=== PATIENT | female | born 1990 | race Caucasian/White ===

== ENCOUNTER → 2018-03-17 | Outpatient (CLI) | payer MEDICAID ==
--- NOTE | 2018-03-17 16:08 | RADIOLOGY IMAGING REPORT ---
FACILITY: [facility] PATIENT NAME: Joshua Bloom : 1990 MR: [id number] V: [id number] EXAM DATE: ORDERING PHYSICIAN: CORNELIA PRESCOTT TECHNOLOGIST: Location: [facility] Patient: Joshua Bloom : 1990 Visit/Account:[id number] Date of Sevice: 03/17/2018 Exam type: CHEST PA AND LAT History: Bronchitis, right lung pain Comparison: None. Findings: Both lungs are hyperinflated but otherwise clear. There is no focal infiltrate, pleural effusion or pneumothorax. Heart size is normal. The osseous structures demonstrate a mild thoracic scoliosis. IMPRESSION: 1. No acute cardiopulmonary disease. Report Dictated By: Khanh Hector MD at 03/17/2018 4:01 PM Report E-Signed By: Khanh Hector MD at 03/17/2018 4:02 PM WSN:LENCHO
== END ==
LOC: RAD 15:30
PROVIDERS: ATTEND Physician Assistant
DX: R91.8 Other nonspecific abnormal finding of lung field (principal); M41.34 Thoracogenic scoliosis, thoracic region; J20.8 Acute bronchitis due to other specified organisms
CPT/HCPCS: 71046

== ENCOUNTER 2018-04-06 11:15 | Outpatient (RCR) | payer MEDICAID ==
[2018-04-07] MEDS ORDERED: IOPAMIDOL 76% 75 ML INFUS BTL 75 ML ONE (14:55)
--- NOTE | 2018-04-07 15:22 | EKG ---
FACILITY: [facility] PATIENT NAME: JESSICA MURRIETA : [id number] MR: [id number] V: [id number] EXAM DATE: ORDERING PHYSICIAN: CORNELIA PRESCOTT TECHNOLOGIST: CODY Amador Reason : CP Blood Pressure : / mmHG Vent. Rate : 060 BPM Atrial Rate : 060 BPM P-R Int : 156 ms QRS Dur : 080 ms QT Int : 404 ms P-R-T Axes : 058 043 051 degrees QTc Int : 404 ms Marked sinus arrhythmia No acute appearing ST-T findings No previous ECGs available Confirmed by ANTONY AMOS ([id number]) on 04/07/2018 4:08:04 PM Referred By: CORNELIA PRESCOTT Confirmed By:ANTONY AMOS
--- NOTE | 2018-04-07 15:57 | RADIOLOGY IMAGING REPORT ---
FACILITY: [facility] PATIENT NAME: Joshua Bloom : 1990 MR: [id number] V: [id number] EXAM DATE: ORDERING PHYSICIAN: CORNELIA PRESCOTT TECHNOLOGIST: Location: [facility] [place] Patient: Joshua Bloom : 1990 Visit/Account:[id number] Date of Sevice: 04/07/2018 CHEST W CONTRAST COMPARISON: PA lateral chest x-ray March 17, 2018. HISTORY: Greater than one month of right-sided pleuritic chest pain. TECHNIQUE: Axial CT of the chest with intravenous contrast. Coronal and sagittal reformats. One of the following dose optimization techniques was utilized in the performance of this exam: auto mated exposure control; adjustment of the mA and/or kV according to patient size; or use of iterative reconstruction technique. Specific details can be referenced in the facility's radiology CT exam op erational policy. CONTRAST: 75 mL of IV Isovue-370. CT CHEST FINDINGS: CARDIAC: Normal size. No pericardial effusion or appreciable coronary artery calcifications. MEDIASTINUM/SMITHA: No adenopathy or mass. VASCULATURE: Four vessel left-sided aortic arch, a normal vascular variant, with the left vertebral artery arising directly from the arch. Cardiac pulsation of the aortic root. Normal caliber thoraci c aorta. There is no large central pulmonary embolism. CHEST WALL: No mass or axillary adenopathy. LUNGS/PLEURA: No significant parenchymal or pleural disease. There is no pleural effusion or bronch ial wall thickening. No significant lung nodules. BONES: No acute fractures. Multilevel Schmorl's nodes in the thoracic spine. LIMITED ABDOMEN: Unremarkable. OTHER: Negative. IMPRESSION: Unremarkable CT of the chest with no cause for pleuritic chest pain identified. Report Dictated By: Shantanu Salmeron at 04/07/2018 3:46 PM Report E-Signed By: Shantanu Salmeron at 04/07/2018 3:54 PM WSN:[email or web address]
== END 2018-04-07 18:00 | disposition home or self-care (01) ==
LOC: CT 11:15 → EDSTATUS 11:15 → CT 04-07 18:00
PROVIDERS: ATTEND Physician Assistant
DX: R07.1 Chest pain on breathing (principal)
CPT/HCPCS: 71260; 93005; Q9967

== ENCOUNTER → 2018-04-15 | Outpatient (CLI) | payer MEDICAID ==
--- NOTE | 2018-04-17 16:45 | RT HOLTER TEST ---
FACILITY: [facility] PATIENT NAME: JESSICA MURRIETA : [id number] MR: [id number] V: [id number] EXAM DATE: ORDERING PHYSICIAN: CORNELIA PRESCOTT TECHNOLOGIST: Rey Acosta-up date: 2018-04-15 13:18:00 Duration: 47:58:00 Test Indications: SINUS ARRYTHMIA Medications: NONE LISTED 407201 QRS complexes 54 Ventricular ectopics which represent <1 % of total QRS comp. 8206 Supraventricular ectopics which represent 3 % of total QRS comp. * Paced QRS complexes which represent % of total QRS comp. VENTRICULAR ECTOPY 39 Isolated 0 Bigeminal Cycles 5 Couplets 1 Runs 5 Beats in Runs 5 Beats LONGEST at 189 BPM at 17:22:28 2018-04-16 5 Beats FASTEST at 189 BPM at 17:22:28 2018-04-16 SUPRAVENTRICULAR ECTOPY 47 Isolated 11 Couplets 17 Runs 8137 Beats in Runs 3506 Beats LONGEST at 140 BPM at 20:27:57 2018-04-16 425 Beats FASTEST at 181 BPM at 20:08:15 2018-04-16 HEART RATES 41 MIN at 04:13:38 2018-04-16 79 AVG 187 MAX at 20:09:28 2018-04-16 LONGEST RR 1.568 secs at 03:15:18 2018-04-16 S-T LEVELS Channel 1 -12.800 mm MIN at 13:18:00 2018-04-15 -12.800 mm MAX at 13:18:00 2018-04-15 Channel 2 -12.800 mm MIN at 13:18:00 2018-04-15 -12.800 mm MAX at 13:18:00 2018-04-15 Several sustained runs of SVT which correlate with patient symptoms of palpitations and lightheadedne ss. One run of 5 beats v-tach which correlate with symptoms noted by pt. Occasional PVC in bigeminy. Occasional SVE in isolation or bigeminal pattern. Abnormal halter recording. Confirmed by Dennys Linton ([id number]) on 04/17/2018 4:45:01 PM Referred By: Overread By: Dennys Cole
== END ==
LOC: RESP 02:17
PROVIDERS: ATTEND Physician Assistant
DX: I47.1 Supraventricular tachycardia (principal); R94.39 Abnormal result of other cardiovascular function study
CPT/HCPCS: 93225; 93226

== ENCOUNTER → 2018-04-29 | Outpatient (CLI) | payer MEDICAID | LOC: US 00:32 | PROVIDERS: ATTEND Internal Medicine | DX: I47.1 Supraventricular tachycardia (principal); R00.2 Palpitations | CPT/HCPCS: 36415; 82040; 82247; 82310; 82374; 82435; 82565; 82947; 84075; 84132; 84155; 84295; 84443; 84450; 84460; 84520; 85027; 93306 ==

== ENCOUNTER → 2018-06-23 | Outpatient (CLI) | payer MEDICAID | LOC: LAB 12:01 | PROVIDERS: ATTEND Internal Medicine Clinical Cardiac Electrophysiology | DX: I47.1 Supraventricular tachycardia (principal) | CPT/HCPCS: 36415; 82310; 82374; 82435; 82565; 82947; 84132; 84295; 84520; 85027 ==

== ENCOUNTER 2018-08-21 22:09 | Emergency (ER) | payer MEDICAID ==
--- NOTE | 2018-08-21 22:14 | ER Report ---
History and Physical Time Seen By MD: 22:13 HPI/ROS CHIEF COMPLAINT: Depression HISTORY OF PRESENT ILLNESS: 28-year-old female brought in by her [id number] with overwhelming depression. Patient's been spending approximately 20 hours in bed per day. She is unable to function because of multiple stressors. She recently had a cardiac ablation in June of this year for SVT. Patient recently had cervical cancer and underwent a LEEP procedure. Patient has a 7-year-old child, the father of the child has since left the relationship and is now seeing another woman and has a child in that relationship. Patient denies actual suicidal ideation or plan. She smokes 1-1/2 packs per day of cigarettes. She admits to some cannabis use. REVIEW OF SYSTEMS: Respiratory: No cough, no dyspnea. Cardiovascular: No chest pain, no palpitations. Gastrointestinal: No vomiting, no abdominal pain. Musculoskeletal: No back pain. Allergies: Coded Allergies: No Known Drug Allergies (Unverified , 08/22/18) Home Meds Reported Medications Nicotine (NICOTROL) 10 Mg/Inh Ctr, 10 MG INH 1-2 hours 08/22/18 Reviewed Nurses Notes: Yes Old Medical Records Reviewed: Yes Constitutional Vital Sign - Last 24 Hours 08/21/18 08/21/18 08/21/18 08/21/18 22:14 22:20 22:24 22:30 Temp 98.2 Pulse 118 115 Resp 16 B/P (MAP) 136/95 136/95 (109) 133/96 (108) Pulse Ox 98 98 O2 Delivery Room Air 08/21/18 08/21/18 08/21/18 22:39 22:54 23:00 Pulse 103 107 B/P (MAP) 130/91 (104) Pulse Ox 98 84 Physical Exam General Appearance: The patient is alert, has no immediate need for airway protection and no current signs of toxicity. Vital signs stable, afebrile, pulse ox normal, no acute distress, appears withdrawn and depressed HEENT: Pupils equal and round no injection. TMs normal, oropharynx without redness or exudate, mucous. Membranes are moist Respiratory: Chest is non tender, lungs are clear to auscultation. Cardiac: regular rate and rhythm Gastrointestinal: Abdomen is soft and non tender, no masses, bowel sounds normal. Musculoskeletal: Neck: Neck is supple and non tender. No thyromegaly noted Extremities have full range of motion and are non tender. Skin: No rashes or lesions. DIFFERENTIAL DIAGNOSIS: After history and physical exam differential diagnosis was considered for depression including functional and major depression, situational depression, medication side effect, drugs and alcohol abuse. Medical Decision Making Data Points Result Diagram: 08/21/18224508/21/182245 Laboratory Hematology Test 08/21/18 22:13 08/21/18 22:46 Urine Color Yellow Urine Clarity Slightly-cloudy Urine pH 6.0 pH (4.8-9.5) Urine Specific Blackwell 1.026 Urine Protein 30 mg/dL (NEGATIVE) Urine Glucose (UA) Negative mg/dL (NEGATIVE) Urine Ketones Trace mg/dL (NEGATIVE) Urine Blood Negative (NEGATIVE) Urine Nitrite Negative (NEGATIVE) Urine Bilirubin Negative (NEGATIVE) Urine Urobilinogen 4.0 mg/dL (0.2-1.9) Urine Leukocyte Esterase Negative (NEGATIVE) Urine RBC 1 /HPF (0-2/HPF) Urine WBC 1 /HPF (0-5/HPF) Urine Squamous Epithelial Cells Many /LPF (</=FEW) Urine Bacteria Negative /HPF (NONE-FEW) Urine Hyaline Casts Few /LPF (NONE-FEW) Urine Mucus Few /HPF (NONE-FEW) Urine HCG, Qualitative Negative (NEGATIVE) Urine Opiates Screen Negative Urine Barbiturates Screen Negative Ur Tricyclic Antidepressants Screen Negative Urine Phencyclidine Screen Negative Urine Amphetamines Screen Positive Urine Benzodiazepines Screen Negative Urine Cocaine Screen Negative Urine Cannabinoids Screen Positive Red Blood Count 4.59 M/uL (4.17-5.56) Mean Corpuscular Volume 94.1 fL (80.0-96.0) Mean Corpuscular Hemoglobin 31.8 pg (26.0-33.0) Mean Corpuscular Hemoglobin Concent 33.8 g/dL (32.0-36.0) Red Cell Distribution Width 12.2 % (11.5-14.5) Mean Platelet Volume 7.7 fL (7.2-11.1) Neutrophils (%) (Auto) 61.7 % (39.4-72.5) Lymphocytes (%) (Auto) 29.7 % (17.6-49.6) Monocytes (%) (Auto) 6.4 % (4.1-12.4) Eosinophils (%) (Auto) 1.5 % (0.4-6.7) Basophils (%) (Auto) 0.7 % (0.3-1.4) Nucleated RBC Relative Count (auto) 0.1 /100WBC Neutrophils # (Auto) 3.6 K/uL (2.0-7.4) Lymphocytes # (Auto) 1.7 K/uL (1.3-3.6) Monocytes # (Auto) 0.4 K/uL (0.3-1.0) Eosinophils # (Auto) 0.1 K/uL (0.0-0.5) Basophils # (Auto) 0.0 K/uL (0.0-0.1) Nucleated RBC Absolute Count (auto) 0.00 K/uL Sodium Level 139 mmol/L (137-145) Potassium Level 3.4 mmol/L (3.5-5.0) Chloride Level 103 mmol/L (98-107) Carbon Dioxide Level 24 mmol/L (22-31) Blood Urea Nitrogen 8 mg/dl (7-18) Creatinine 0.70 mg/dl (0.52-1.04) Glomerular Filtration Rate Calc > 60.0 Random Glucose 98 mg/dl (75-110) Calcium Level 9.2 mg/dl (8.4-10.2) Magnesium Level 1.8 mg/dl (1.7-2.2) Total Bilirubin 0.3 mg/dl (0.2-1.3) Aspartate Amino Transf (AST/SGOT) 20 U/L (0-35) Alanine Aminotransferase (ALT/SGPT) 27 U/L (0-56) Alkaline Phosphatase 55 U/L (0-126) Total Protein 7.6 g/dl (6.3-8.2) Albumin 4.6 g/dl (3.5-5.0) Salicylates Level < 10 mg/L Salicylate Last Dose Date unk Acetaminophen Level < 10 ug/ml Serum Alcohol < 10 mg/dl Chemistry Test 08/21/18 22:13 08/21/18 22:46 Urine Color Yellow Urine Clarity Slightly-cloudy Urine pH 6.0 pH (4.8-9.5) Urine Specific Blackwell 1.026 Urine Protein 30 mg/dL (NEGATIVE) Urine Glucose (UA) Negative mg/dL (NEGATIVE) Urine Ketones Trace mg/dL (NEGATIVE) Urine Blood Negative (NEGATIVE) Urine Nitrite Negative (NEGATIVE) Urine Bilirubin Negative (NEGATIVE) Urine Urobilinogen 4.0 mg/dL (0.2-1.9) Urine Leukocyte Esterase Negative (NEGATIVE) Urine RBC 1 /HPF (0-2/HPF) Urine WBC 1 /HPF (0-5/HPF) Urine Squamous Epithelial Cells Many /LPF (</=FEW) Urine Bacteria Negative /HPF (NONE-FEW) Urine Hyaline Casts Few /LPF (NONE-FEW) Urine Mucus Few /HPF (NONE-FEW) Urine HCG, Qualitative Negative (NEGATIVE) Urine Opiates Screen Negative Urine Barbiturates Screen Negative Ur Tricyclic Antidepressants Screen Negative Urine Phencyclidine Screen Negative Urine Amphetamines Screen Positive Urine Benzodiazepines Screen Negative Urine Cocaine Screen Negative Urine Cannabinoids Screen Positive White Blood Count 5.8 k/uL (4.5-11.0) Red Blood Count 4.59 M/uL (4.17-5.56) Hemoglobin 14.6 g/dL (12.0-16.0) Hematocrit 43.1 % (34.0-47.0) Mean Corpuscular Volume 94.1 fL (80.0-96.0) Mean Corpuscular Hemoglobin 31.8 pg (26.0-33.0) Mean Corpuscular Hemoglobin Concent 33.8 g/dL (32.0-36.0) Red Cell Distribution Width 12.2 % (11.5-14.5) Platelet Count 251 K/uL (150-450) Mean Platelet Volume 7.7 fL (7.2-11.1) Neutrophils (%) (Auto) 61.7 % (39.4-72.5) Lymphocytes (%) (Auto) 29.7 % (17.6-49.6) Monocytes (%) (Auto) 6.4 % (4.1-12.4) Eosinophils (%) (Auto) 1.5 % (0.4-6.7) Basophils (%) (Auto) 0.7 % (0.3-1.4) Nucleated RBC Relative Count (auto) 0.1 /100WBC Neutrophils # (Auto) 3.6 K/uL (2.0-7.4) Lymphocytes # (Auto) 1.7 K/uL (1.3-3.6) Monocytes # (Auto) 0.4 K/uL (0.3-1.0) Eosinophils # (Auto) 0.1 K/uL (0.0-0.5) Basophils # (Auto) 0.0 K/uL (0.0-0.1) Nucleated RBC Absolute Count (auto) 0.00 K/uL Glomerular Filtration Rate Calc > 60.0 Calcium Level 9.2 mg/dl (8.4-10.2) Magnesium Level 1.8 mg/dl (1.7-2.2) Total Bilirubin 0.3 mg/dl (0.2-1.3) Aspartate Amino Transf (AST/SGOT) 20 U/L (0-35) Alanine Aminotransferase (ALT/SGPT) 27 U/L (0-56) Alkaline Phosphatase 55 U/L (0-126) Total Protein 7.6 g/dl (6.3-8.2) Albumin 4.6 g/dl (3.5-5.0) Salicylates Level < 10 mg/L Salicylate Last Dose Date unk Acetaminophen Level < 10 ug/ml Serum Alcohol < 10 mg/dl Toxicology Test 08/21/18 22:13 08/21/18 22:46 Urine Opiates Screen Negative Urine Barbiturates Screen Negative Ur Tricyclic Antidepressants Screen Negative Urine Phencyclidine Screen Negative Urine Amphetamines Screen Positive Urine Benzodiazepines Screen Negative Urine Cocaine Screen Negative Urine Cannabinoids Screen Positive Salicylates Level < 10 mg/L Salicylate Last Dose Date unk Acetaminophen Level < 10 ug/ml Serum Alcohol < 10 mg/dl Urinalysis Test 08/21/18 22:13 Urine Color Yellow Urine Clarity Slightly-cloudy Urine pH 6.0 pH (4.8-9.5) Urine Specific Blackwell 1.026 Urine Protein 30 mg/dL (NEGATIVE) Urine Glucose (UA) Negative mg/dL (NEGATIVE) Urine Ketones Trace mg/dL (NEGATIVE) Urine Blood Negative (NEGATIVE) Urine Nitrite Negative (NEGATIVE) Urine Bilirubin Negative (NEGATIVE) Urine Urobilinogen 4.0 mg/dL (0.2-1.9) Urine Leukocyte Esterase Negative (NEGATIVE) Urine RBC 1 /HPF (0-2/HPF) Urine WBC 1 /HPF (0-5/HPF) Urine Squamous Epithelial Cells Many /LPF (</=FEW) Urine Bacteria Negative /HPF (NONE-FEW) Urine Hyaline Casts Few /LPF (NONE-FEW) Urine Mucus Few /HPF (NONE-FEW) Urine HCG, Qualitative Negative (NEGATIVE) ED Course/Re-evaluation ED Course Patient was admitted to an examination room. H&P was done. The differential diagnoses was considered. Patient was evaluated. Her tox screen was positive for amphetamines and cannabis. Patient with severe depression, spitting 20 hours a day in bed. She is unable to cope with her stressors. She has multiple stressors as noted in the initial history. Star was discussed with nurse practitioner Kim Parker on-call for the [facility] Department accepted the patient for involuntary admission. Decision to Disposition Date: Aug 21, 2018 Decision to Disposition Time: 23:11 Depart Departure Latest Vital Signs Vital Signs Date Time Temp Pulse Resp B/P (MAP) Pulse Ox O2 Delivery O2 Flow Rate FiO2 08/21/18 23:00 130/91 (104) 08/21/18 22:54 107 84 08/21/18 22:14 98.2 16 Room Air Impression: Primary Impression: Depression Condition: Improved Disposition: XFER TO [facility] Problem Qualifiers Primary Impression: Depression Depression Type: major depressive disorder Major depression recurrence: unspecified whether recurrent Active/Remission status: currently active Major depression episode severity: moderate Qualified Codes: F32.1 - Major depressive disorder, single episode, moderate OZ RAMIREZ DO Aug 21, 2018 22:14
[2018-08-21 22:57] LABS: PLATELET COUNT, AUTOMATED 251 K/uL (150-450)
[2018-08-21 23:00] VITALS: BP 130/91
[2018-08-22] MEDS ORDERED: NIC10R INH ×2 (11:21→15:01)
== END 2018-08-21 23:39 ==
LOC: ER 22:26
DX: F32.1 Major depressive disorder, single episode, moderate (principal); F15.10 Other stimulant abuse, uncomplicated; F12.10 Cannabis abuse, uncomplicated
CPT/HCPCS: 36415; 80305; 81001; 81025; 83735; 84443; 85025; 99284; G0480; 80320; 80329; 82040; 82247; 82310; 82374; 82435; 82565; 82947; 84075; 84132; 84155; 84295; 84450; 84460; 84520

== ENCOUNTER 2018-08-21 23:28 | Inpatient (IN) | payer MEDICAID ==
[~2018-08-21] VITALS: Ht 177.8 cm; Wt 66.2 kg
[2018-08-22] MEDS ORDERED: NICOTINE CARTRIDGE 1 EA PO PRN (00:15)
[2018-08-22] MEDS ORDERED: NICOTINE INH SYSTEM 10 MG/INH INH PRN (00:15)
[2018-08-22 00:51] VITALS: BP 142/112
[2018-08-22] MEDS ORDERED: NIC10R INH ×2 (11:21→15:01)
[2018-08-22 12:50] VITALS: BP 120/66
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
== END 2018-08-22 15:15 | disposition home or self-care (01) | DRG 882 ==
LOC: BHS 23:28
PROVIDERS: ADMIT Nurse Practitioner Psychiatric/Mental Health; ATTEND Nurse Practitioner Psychiatric/Mental Health
DX: F43.23 Adjustment disorder with mixed anxiety and depressed mood (principal); F12.20 Cannabis dependence, uncomplicated; F17.210 Nicotine dependence, cigarettes, uncomplicated; Z62.810 Personal history of physical and sexual abuse in childhood; Z63.5 Disruption of family by separation and divorce; Z85.41 Personal history of malignant neoplasm of cervix uteri; Z56.0 Unemployment, unspecified; Z91.5 Personal history of self-harm
CPT/HCPCS: 36415; 80305; 80320; 80329; 81001; 81025; 82040; 82247; 82310; 82374; 82435; 82565; 82947; 83735; 84075; 84132; 84155; 84295; 84443; 84450; 84460; 84520; 85025; 99284

== ENCOUNTER 2018-10-17 14:58 | Emergency (ER) | payer MEDICAID ==
[~2018-10-17 14:58] MED LIST: NIC10R INH
--- NOTE | 2018-10-17 15:12 | ER Report ---
History and Physical Time Seen By MD: 15:11 Hx. of Stated Complaint: NAUSEA VOMITTING DIARRHEA SINCE LAST NI9GHT. VERY DIZZY HPI/ROS CHIEF COMPLAINT: Lightheadedness and dizziness HISTORY OF PRESENT ILLNESS: This is a 28-year-old female who presents to emergency department for lightheadedness and dizziness. Patient states that over the last couple days she's had some nausea 12 episodes of vomiting, diarrhea. States that last night she became dizzy after bending over and standing up, he has had continued dizziness today. Nothing seems to to help. She does have a history of SVT, she did have an ablation in June which has been relatively successful. She denies palpitations, no chest pain or shortness of breath. No rashes. She states she's had mild upper respiratory symptoms for the last couple days as well. Her and son who is at the bedside also had GI symptoms this week. REVIEW OF SYSTEMS: Constitutional: No fever, no chills. Eyes: No discharge. ENT: No sore throat. Cardiovascular: No chest pain, no palpitations. Respiratory: No cough, no shortness of breath. Gastrointestinal: As above. Genitourinary: No hematuria. Musculoskeletal: No back pain. Skin: No rashes. Neurological: As above. Allergies: Coded Allergies: No Known Drug Allergies (Unverified , 10/17/18) Home Meds Active Scripts Ondansetron Hcl (ZOFRAN) 4 Mg Tablet, 4 MG PO Q4-6H PRN for prn, #20 TAB Prov:HUEY CABRERA FOLDER AND NOTCHER-BC 10/17/18 Discontinued Reported Medications Nicotine (NICOTROL) 10 Mg/Inh Ctr, 10 MG INH 1-2 hours 08/22/18 Past Medical/Surgical History Patient has a past medical cervical history of recurrent SVT, ablation in June 2018, endometriosis, LEEP procedure, wears glasses, depression, [place] teeth extraction. Reviewed Nurses Notes: Yes Smoking Status: Former Smoker, Heavy Tobacco Smoker Exposure to Second Hand Smoke?: Yes Hx Substance Use Disorder: Yes Hx Alcohol Use: No Constitutional Vital Sign - Last 24 Hours 10/17/18 10/17/18 10/17/18 10/17/18 15:03 15:04 15:30 15:35 Temp 98.8 Pulse 72 69 67 Resp 20 18 B/P (MAP) 140/98 140/98 (112) 128/93 (105) Pulse Ox 97 100 99 O2 Delivery Room Air 10/17/18 10/17/18 10/17/18 10/17/18 16:00 16:05 16:30 16:35 Pulse 68 Resp 21 21 B/P (MAP) 121/86 (98) 127/96 (106) Pulse Ox 93 99 10/17/18 10/17/18 17:00 17:05 Pulse 66 Resp 19 B/P (MAP) 129/92 (104) Physical Exam General Appearance: The patient is alert, has no immediate need for airway protection and no signs of toxicity. Eyes: Pupils equal and round no pallor or injection. EOMs intact. No nystagmus. ENT, Mouth: Mucous membranes are moist. Respiratory: There are no retractions, lungs are clear to auscultation. Cardiovascular: Regular rate and rhythm. No murmurs, clicks or rubs. Gastrointestinal: Abdomen is soft and non tender, no masses, bowel sounds normal. Neurological: Alert and oriented 4. Moving all extremities. Following all commands. No focal neuro deficits. Skin: Warm and dry, no rashes. Musculoskeletal: Neck is supple non tender. Extremities are nontender, nonswollen and have full range of motion. DIFFERENTIAL DIAGNOSIS: After history and physical exam differential diagnosis was considered for dizziness including but not limited to peripheral and central causes of vertigo, orthostatic causes including dehydration, and blood loss. Medical Decision Making Data Points Result Diagram: 10/17/18 1513 10/17/18 1513 Laboratory Hematology Test 10/17/18 15:13 Red Blood Count 4.57 M/uL (4.17-5.56) Mean Corpuscular Volume 95.1 fL (80.0-96.0) Mean Corpuscular Hemoglobin 32.5 pg (26.0-33.0) Mean Corpuscular Hemoglobin Concent 34.2 g/dL (32.0-36.0) Red Cell Distribution Width 12.5 % (11.5-14.5) Mean Platelet Volume 7.3 fL (7.2-11.1) Neutrophils (%) (Auto) 66.3 % (39.4-72.5) Lymphocytes (%) (Auto) 23.3 % (17.6-49.6) Monocytes (%) (Auto) 5.3 % (4.1-12.4) Eosinophils (%) (Auto) 4.7 % (0.4-6.7) Basophils (%) (Auto) 0.4 % (0.3-1.4) Nucleated RBC Relative Count (auto) 0.0 /100WBC Neutrophils # (Auto) 4.4 K/uL (2.0-7.4) Lymphocytes # (Auto) 1.5 K/uL (1.3-3.6) Monocytes # (Auto) 0.4 K/uL (0.3-1.0) Eosinophils # (Auto) 0.3 K/uL (0.0-0.5) Basophils # (Auto) 0.0 K/uL (0.0-0.1) Nucleated RBC Absolute Count (auto) 0.00 K/uL Sodium Level 138 mmol/L (137-145) Potassium Level 3.0 mmol/L (3.5-5.0) Chloride Level 107 mmol/L (98-107) Carbon Dioxide Level 23 mmol/L (22-31) Blood Urea Nitrogen 9 mg/dl (7-18) Creatinine 0.50 mg/dl (0.52-1.04) Glomerular Filtration Rate Calc > 60.0 Random Glucose 97 mg/dl (75-110) Calcium Level 8.6 mg/dl (8.4-10.2) Total Bilirubin 0.4 mg/dl (0.2-1.3) Aspartate Amino Transf (AST/SGOT) 16 U/L (0-35) Alanine Aminotransferase (ALT/SGPT) 20 U/L (0-56) Alkaline Phosphatase 51 U/L (0-126) Total Protein 6.7 g/dl (6.3-8.2) Albumin 3.7 g/dl (3.5-5.0) Chemistry Test 10/17/18 15:13 White Blood Count 6.6 k/uL (4.5-11.0) Red Blood Count 4.57 M/uL (4.17-5.56) Hemoglobin 14.8 g/dL (12.0-16.0) Hematocrit 43.4 % (34.0-47.0) Mean Corpuscular Volume 95.1 fL (80.0-96.0) Mean Corpuscular Hemoglobin 32.5 pg (26.0-33.0) Mean Corpuscular Hemoglobin Concent 34.2 g/dL (32.0-36.0) Red Cell Distribution Width 12.5 % (11.5-14.5) Platelet Count 229 K/uL (150-450) Mean Platelet Volume 7.3 fL (7.2-11.1) Neutrophils (%) (Auto) 66.3 % (39.4-72.5) Lymphocytes (%) (Auto) 23.3 % (17.6-49.6) Monocytes (%) (Auto) 5.3 % (4.1-12.4) Eosinophils (%) (Auto) 4.7 % (0.4-6.7) Basophils (%) (Auto) 0.4 % (0.3-1.4) Nucleated RBC Relative Count (auto) 0.0 /100WBC Neutrophils # (Auto) 4.4 K/uL (2.0-7.4) Lymphocytes # (Auto) 1.5 K/uL (1.3-3.6) Monocytes # (Auto) 0.4 K/uL (0.3-1.0) Eosinophils # (Auto) 0.3 K/uL (0.0-0.5) Basophils # (Auto) 0.0 K/uL (0.0-0.1) Nucleated RBC Absolute Count (auto) 0.00 K/uL Glomerular Filtration Rate Calc > 60.0 Calcium Level 8.6 mg/dl (8.4-10.2) Total Bilirubin 0.4 mg/dl (0.2-1.3) Aspartate Amino Transf (AST/SGOT) 16 U/L (0-35) Alanine Aminotransferase (ALT/SGPT) 20 U/L (0-56) Alkaline Phosphatase 51 U/L (0-126) Total Protein 6.7 g/dl (6.3-8.2) Albumin 3.7 g/dl (3.5-5.0) EKG/Imaging EKG Interpretation 12 lead EKG: Time of EKG 1523. Rhythm: Junctional rhythm, ventricular rate 69 bpm. [place]: normal QRS: normal ST segments: No ST depression or elevation identified. No P-wave when compared to the 04/07/2019 EKG, patient did have an ablation in June for recurrent SVT. Otherwise unremarkable. ED Course/Re-evaluation Clinical Indication for ER IV: Hydration, IV Access ED Course The patient was admitted to room. A history and physical obtained. Differential diagnoses were considered. IV was started. A CBC, CMP, UA were obtained. Laboratory studies unremarkable. A 1 L normal saline bolus and given 2. 4 mg IV Zofran. EKG showing junctional rhythm otherwise unremarkable. 25 mg by mouth meclizine. Patient did have significant improvement of her symptoms. I did tell the patient this is likely due to the diarrhea, recommend continuing to drink plenty of fluids, was given Zofran and encouraged to take meclizine as needed for the dizziness. Follow-up with her primary care provider this next week for reevaluation, return to ER for any other concerns she expressed understanding and discharged home. Decision to Disposition Date: October 17, 2018 Decision to Disposition Time: 17:36 Depart Departure Latest Vital Signs Vital Signs Date Time Temp Pulse Resp B/P (MAP) Pulse Ox O2 Delivery O2 Flow Rate FiO2 10/17/18 17:05 66 19 10/17/18 17:00 129/92 (104) 10/17/18 16:35 99 10/17/18 15:03 98.8 Room Air Impression: Primary Impression: Vertigo Condition: Improved Disposition: HOME OR SELF-CARE Referrals: CORNELIA PRESCOTT (PCP) 1 Week New Scripts Ondansetron Hcl (ZOFRAN) 4 Mg Tablet 4 MG PO Q4-6H PRN for prn, #20 TAB Prov: HUEY CABRERA FOLDER AND NOTCHER-BC 10/17/18 Patient Instructions: Vertigo (ED) Additional Instructions: Be sure to drink plenty of fluids. Get plenty of rest. Take the Zofran as needed. You can take 25 mg of meclizine a day. Follow-up with your primary care provider within one week for reevaluation. Return to the ER for any concerns or worsening symptoms. When you move from a laying, sitting to standing position be sure to do this sl owly and allow anybody time to adjust. HUEY CABRERA FOLDER AND NOTCHER-BC October 17, 2018 15:12
[2018-10-17] MEDS ORDERED: NS(*) 0.9% 1000 ML BAG 1,000 ML IV ONE ×2 (15:14→15:23)
[2018-10-17] MEDS ORDERED: ONDANSETRON 4 MG/2 ML VIAL IVP ONE (15:25)
[2018-10-17 15:31] LABS: PLATELET COUNT, AUTOMATED 229 K/uL (150-450)
--- NOTE | 2018-10-17 15:33 | EKG ---
FACILITY: PATIENT NAME: JESSICA MURRIETA : [id number] MR: [id number] V: [id number] EXAM DATE: ORDERING PHYSICIAN: HUEY CABRERA TECHNOLOGIST: TRE Test Reason : dizzy Blood Pressure : / mmHG Vent. Rate : 069 BPM Atrial Rate : 070 BPM P-R Int : 000 ms QRS Dur : 088 ms QT Int : 426 ms P-R-T Axes : 000 037 047 degrees QTc Int : 456 ms Accelerated Junctional rhythm Anterior infarct , age undetermined Abnormal ECG When compared with ECG of 07-APR-2018 15:12, Junctional rhythm has replaced sinus arrythmia Confirmed by Dennys Linton ([id number]) on 10/17/2018 9:48:41 PM Referred By: Confirmed By:Dennys Cole
[2018-10-17] MEDS ORDERED: MECLIZINE HCL 25 MG TAB PO ONE (16:10)
[2018-10-17 17:00] VITALS: BP 129/92
[2018-10-17] MEDS ORDERED: ONDA4TAB97 PO (17:36)
== END 2018-10-17 17:48 | disposition home or self-care (01) ==
LOC: ER 15:01
DX: R42 Dizziness and giddiness (principal)
CPT/HCPCS: 85025; 93005; 96361; 96374; 99284; J2405; J7030; J8597; 82040; 82247; 82310; 82374; 82435; 82565; 82947; 84075; 84132; 84155; 84295; 84450; 84460; 84520; 99283

== ENCOUNTER 2018-11-06 00:40 | Day surgery (SDC) | payer MEDICAID ==
[~2018-11-06] VITALS: Ht 180.3 cm; Wt 63.0 kg
[~2018-11-06 00:40] MED LIST changes: +ONDA4TAB97 PO; +PARO-243 PO
[2018-11-06] MEDS ORDERED: LIDOCAINE/SOD BICARB 8.4% SYR ID ONE (13:05)
[2018-11-06] MEDS ORDERED: MIDAZOLAM 2 MG/2 ML VIAL IVP PRN (13:05)
[2018-11-06] MEDS ORDERED: FAMOTIDINE 20 MG TAB PO ONE (13:05)
[2018-11-06] MEDS ORDERED: NORMOSOL R SOLN(*) 1000 ML BAG 1,000 ML IV PRN (13:05)
[2018-11-06 13:22] VITALS: BP 126/83
[2018-11-06] MEDS ORDERED: PROPOFOL EMUL(*) 10MG/ML 20 ML 20 ML ONE (14:10)
[2018-11-06] MEDS ORDERED: DEXAMETHASONE SOD 4 MG/ML VIAL ONE (14:10)
[2018-11-06] MEDS ORDERED: SUGAMMADEX SOD 200 MG/2 ML SDV ONE (14:10)
[2018-11-06] MEDS ORDERED: LIDOCAINE MPF 1% 5 ML VIAL ONE (14:10)
[2018-11-06] MEDS ORDERED: ONDANSETRON 4 MG/2 ML VIAL ONE (14:10)
[2018-11-06] MEDS ORDERED: ROCURONIUM BROM 10 MG/ML 10 ML ONE (14:10)
[2018-11-06] MEDS ORDERED: fentaNYL CITR 250 MCG/5 ML AMP ONE (14:11)
[2018-11-06] MEDS ORDERED: KETAMINE HCL 200 MG/20 ML MDV ONE (14:13)
[2018-11-06] MEDS ORDERED: ROPIVACAINE 0.2% 20 ML VIAL ONE (15:32)
[2018-11-06] MEDS ORDERED: LR(*) 1000 ML BAG 1,000 ML IV ONE (17:11)
--- NOTE | 2018-11-06 17:11 | Post Operative Note ---
Operative Note - OFFICE DIRECTOR Operative Day Date: Nov 06, 2018 Time: 17:10 Physicians Surgeon: Brandon Anesthesia: GETA Diagnosis Pre-Op Diagnosis: pelvic pain dysmenorrhea dyspareunia Post-Op Diagnosis: same Procedure Findings: PID adhesions Procedure(s): L-scope diagnostic L-scope adhesiolysis Complications: [id number] Fluids Fluids: 1350 ml Estimated Blood Loss: minimal Dictated Date OP Note Dictated: Nov 06, 2018 Time OP Note Dictated: 17:11 Copies to: ENMA GERMIAN MD ; ENMA GERMAIN MD Nov 06, 2018 17:11
[2018-11-06] MEDS ORDERED: APAP/HYDROCODONE 325/5 TAB PO PRN (17:15)
[2018-11-06] MEDS ORDERED: IBUP800T37 PO (17:16)
[2018-11-06] MEDS ORDERED: DOXY-252 PO (17:16)
[2018-11-06] MEDS ORDERED: fentaNYL CITR 100 MCG/2 ML AMP ONE ×2 (17:16→17:39)
[2018-11-06] MEDS ORDERED: LOR5/325 PO (17:16)
--- NOTE | 2018-11-06 17:19 | Short(Outpt) Discharge Summary ---
Discharge Summary Reason for Hosp/Final Diag: (1) Dyspareunia, female (2) PID (acute pelvic inflammatory disease) Hospital Course & Plan: Findings consistent with PID and adhesions. Would recommend hyst as fertility is not possible in this condition and if pain persists, this would be only way to resolve. (3) Pelvic pain Hospital Course & Plan: no endometriosis present (4) Dysmenorrhea Departure Discharge to: Home, Self Care Discharge Instructions Home Meds Active Scripts Hydrocodone Bit/Acetaminophen (HYDROCODON-ACETAMINOPHEN 5-325) 1 Each Tablet, 1 EACH PO Q4-6H PRN for PAIN, #20 TAB 0 Refills Prov:ENMA GERMAIN MD 11/06/18 Reported Medications Paroxetine Hcl (PAXIL) 20 Mg Tablet, 20 MG PO QDAY, TAB 11/03/18 Discontinued Scripts Ondansetron Hcl (ZOFRAN) 4 Mg Tablet, 4 MG PO Q4-6H PRN for prn, #20 TAB Prov:HUEY CABRERA SILICA DRY PRESS HELPER- 10/17/18 Follow up Referrals: AUTOMOTIVE SERVICES MANAGER - In Two Weeks @ [facility] with ENMA GERMAIN MD Diet: Regular Activity: As Tolerated Copies to: ENMA GERMAIN MD ; ENMA GERMAIN MD Nov 06, 2018 17:19
[2018-11-06] MEDS ORDERED: METR500T15 PO ×3 (17:55→18:04)
[2018-11-06 18:05] VITALS: BP 130/92
[2018-11-06 18:15] VITALS: BP 125/87
[2018-11-06 18:30] VITALS: BP 106/77
[2018-11-06 18:36] VITALS: BP 129/99
[2018-11-06 18:37] VITALS: BP 115/90
--- NOTE | 2018-11-06 18:58 | OPERATIVE REPORT 1 ---
EVENT DATE: November 06, 2018 SURGEON: Doyle Taylor MD ANESTHESIOLOGIST: Miguel Angel Godinez MD ANESTHESIA: General endotracheal. PREOPERATIVE DIAGNOSES 1. Pelvic pain. 2. Dysmenorrhea. 3. Dyspareunia. POSTOPERATIVE DIAGNOSES 1. Pelvic pain. 2. Dysmenorrhea. 3. Dyspareunia. 4. Pelvic inflammatory disease. 5. Pelvic adhesions. 6. Luhu-Jmsj-Attuqu syndrome. PROCEDURES PERFORMED 1. Diagnostic laparoscopy 2. Laparoscopic lysis of adhesions. ESTIMATED BLOOD LOSS Minimal. FLUIDS Crystalloid 1350 mL IV. FINDINGS Upon inspecting the abdomen, the liver was noted to have scarring and adhesions from the liver to the anterior abdominal wall consistent with Zrzb-[id number]-Lufawg syndrome. Inspecting the pelvis, the uterus had filmy stringy adhesions present on the serosa. There was bilateral hydrosalpinx and bilateral adherence of the tube and ovary to the posterior ovarian fossa. The left tube and ovary were also adherent to the descending colon. There was further evidence of inflammatory peritoneum throughout cul-de-sac. There was no visible pus or sign of acute infection. Fluid that was drained out of the right hydrosalpinx was straw-like in consistency. There was bilateral clubbing of both tubes with no discernible fimbriated end, and both tubes were dilated. PROCEDURE IN DETAIL The patient was brought to the operating room with a working IV and placed in the dorsal supine position. She was placed under general endotracheal anesthesia and moved to the dorsal lithotomy position. She was then prepped and draped in the usual sterile fashion. Using a speculum, the cervix was grasped with a single-toothed tenaculum, sounded to a depth of a 8 cm. The cervix was carefully dilated to accommodate a size 8 KHALIF uterine manipulator, which was passed through the cervix into the uterus, balloon inflated and secured, and all other instruments were then removed. The bladder had been drained at prep. The legs were brought back to the supine position, and gloves were changed. The umbilicus was infiltrated with 0.2% Naropin, and a 5 mm stab incision was made. The abdominal wall was elevated while a Veress needle was passed through this incision into the abdomen and connected to the insufflator. Negative pressure was observed while elevating the anterior abdominal wall, confirming intra- abdominal presence and, therefore, an pneumoperitoneum was created to an intra- abdominal pressure of 20 mmHg. The Veress needle was removed, and a 5 mm bladeless trocar was passed through this incision into the abdomen under direct visualization with the scope. The abdomen and pelvis were surveyed. The above findings were noted. Two additional 5 mm ports were placed in the suprapubic and left lower quadrant locations under similar technique. Through these ports, laparoscopic scissors and a [place] dissector were passed in order to manipulate the tissue. The right tube and ovary were put on stretch, exposing their adhesion to the posterior ovarian fossa. Laparoscopic scissors and monopolar cautery were used to dissect this ovary relatively free. The ureters were observed and confirmed well away from the operative area. There were some superficial windows into the dilated tube and mesosalpinx in this location that were cut into with laparoscopic scissors, and a straw-like fluid was released. I could not find the fimbriated end to this tube, and it was apparently clubbed and scarred to the right ovary. Attention was turned to the contralateral side, and the descending colon was taken down off its adhesion to the left pelvic sidewall and the left tube and ovary. The left ovary and tube were more densely adhered to the posterior ovarian fossa in this location, and also the fimbriated end could not be found with a resultant clubbed tube and dilated tube as well. Efforts were made to try to take the tube and ovary from their adhesive locations, but most of the adhesions were directly overlying the ureter, and I did not feel comfortable proceeding to dissect in that location for fear of damage to the ureter. There were filmy adhesion and stringy inflammatory serosa present on the uterus and in the posterior ovarian fossa and the posterior cul-de-sac. All of this was consistent with a diagnosis of pelvic inflammatory disease. We will plan on treating the patient with antibiotics postoperatively. The pelvis was then copiously irrigated and suctioned dry. No visible persistent bleeding; therefore, the peritoneum was suctioned out. All instruments were removed from the abdomen. Skin incisions were repaired with a 4-0 Monocryl simple subdermal and covered with Dermabond skin adhesive. The KHALIF uterine manipulator was removed. She was awakened from general anesthesia in stable condition. Sponge, lap, needle, and instrument counts were all correct times three. POLLY
[2018-11-07] MEDS ORDERED: IBUPROFEN 800 MG TAB PO SCH (01:00)
== END 2018-11-06 18:05 | disposition home or self-care (01) ==
LOC: OR 00:40
PROVIDERS: ATTEND Obstetrics & Gynecology
DX: N94.6 Dysmenorrhea, unspecified (principal); N94.10 Unspecified dyspareunia; R10.2 Pelvic and perineal pain; N73.9 Female pelvic inflammatory disease, unspecified; N73.6 Female pelvic peritoneal adhesions (postinfective)
CPT/HCPCS: 58660; 84132; 84703; J1100; J2001; J2250; J2405; J2704; J2795; J3010; J3490